=== PATIENT | female | born 1940 | race Caucasian/White ===

== ENCOUNTER 2016-12-12 20:32 | Emergency (ER) | payer MEDICARE, OTHER ==
[~2016-12-12] VITALS: Ht 172.7 cm; Wt 93.6 kg
[~2016-12-12 20:32] MED LIST: ATEN100T PO; CHOL500050 PO; CITA40TA13 PO; HYDR25TA4 PO; LEVO175T5 PO; LOSA100T29 PO; MORP-32 PO; MORP15TA PO; PANT40TA3 PO
[2016-12-12 20:38] VITALS: BP 105/64; PULSE 84; RESP 18; O2SAT 100
--- NOTE | 2016-12-12 20:49 | ED.REPORT ---
HPI-Dyspnea / Wheezing Date of Service Dec 12, 2016 ED Provider: Brigido Chanel DO Patient is a 76 year old with a history of hypertension, anxiety and depression who presents to the ED due to shortness of breath. Associated symptoms include diaphoresis and anxiety. The patient reports that it feels like she is drowning. She denies chest pain, leg swelling, fever or cough. The patient states that she recently went off Cymbalta with her last dose on . She states that she is able to sleep with one pillow. Nursing Notes Stated Complaint: TROUBLE BREATHING,FEEL LIKE IM DROWNING Chief Complaint: Respiratory Complaints Nursing Notes Reviewed: Yes Allergies: Coded Allergies: Penicillins (Verified Allergy, Severe, anaphylaxis, 10/07/09) TAPE (Verified Allergy, Severe, blisters (paper tape ok), 03/01/09) aspirin (Verified Allergy, Intermediate, rash, gi distress; percocet is ok , 10/07/09) oxycodone HCl (Verified Allergy, Intermediate, rash, gi distress; percocet is ok, 10/07/09) Scheduled Atenolol (Atenolol) 100 Mg Tablet 100 MG PO DAILY Cholecalciferol (Vitamin D3) (Vitamin D3) 50,000 Unit Capsule 50,000 UNIT PO QW Citalopram (Citalopram) 40 Mg Tablet 40 MG PO BID Hydrochlorothiazide (Hydrochlorothiazide) 25 Mg Tablet 25 MG PO DAILY Levothyroxine (Levothyroxine) 175 Mcg Tablet 175 MCG PO DAILY Losartan Potassium (Losartan Potassium) 100 Mg Tablet 100 MG PO DAILY Morphine Sulfate ER (Morphine Sulfate ER) 15 Mg Tablet.er 15 MG PO BID Pantoprazole DR (Pantoprazole DR) 40 Mg Tablet.dr 40 MG PO BID Scheduled PRN Morphine Sulfate (Morphine Sulfate) 15 Mg Tablet 0.5-1 TAB PO Q6 PRN PRN For Pain General Time Seen by MD: 20:46 Chief Complaint Shortness of breath Hx Obtained From: Patient Arrived By: Walk-in Sudden in Onset?: Yes Onset Occurred: Yesterday Symptom Duration: Since onset Location: : None Associated with: Reports: Anxiety, Diaphoresis, Denies: Chest pain, Cough Recent Healthcare: No recent hospitalization, Recent doctor visit Past Medical History Past Medical History Chronic back pain hypothyroidism depression anxiety Reports: GERD, Hypertension Past Surgical History Reports: Cholecystectomy, Hysterectomy Reports: Hip replacement Smoking History Former Smoker Social History Alcohol Use: Denies alcohol use Drug Use: Denies drug use Other Social History: Good social support Ambulatory Status Independent Review of Systems Constitutional: Denies: Fever, Weakness - generalized Respiratory: Reports: Shortness of breath, Denies: Non-productive cough Cardiovascular: Denies: Chest pain Musculoskeletal: Denies: Extremity swelling Skin: Reports Diaphoresis Complete sys rev & neg: except as marked. Psychiatric: Reports: Anxiety Physical Exam Initial Vital Signs Vital Signs (First) Date Time Temp Pulse Resp B/P Pulse Ox O2 Delivery O2 Flow Rate FiO2 12/12/16 20:38 36.9 84 18 105/64 100 Room Air Initial VS: Reviewed General/Constitutional: Awake, Alert Behavior: Positive: Anxious, Tearful Neck: Atraumatic, Supple, Full range of motion, No JVD Respiratory / Chest: Atraumatic, Breath sounds NL, Breath sounds = bilat, No respiratory distress Cardiovascular: Heart rate NL, Regular rhythm, Heart sounds NL Lower Extremity / Pelvis / MS: Atraumatic, Full range of motion Skin: Atraumatic, Color NL, No rash, Warm, Dry Neurologic: Oriented X3, Speech NL Head / Eyes: Atraumatic, Normocephalic, PERRL, EOMI Psychiatric: Affect NL, Mood NL Interpretation & Diagnostics Lab Results Interpretation Result Diagram: 12/12/16205412/12/162054 Test 12/12/16 20:55 12/12/16 22:07 12/12/16 23:57 White Blood Count 6.9th/mm3 (3.8-10.1) Red Blood Count 3.83mil/mm3 (3.90-5.20) Hemoglobin 11.9g/dL (12.0-15.6) Hematocrit 34.8% (35.0-46.0) Mean Corpuscular Volume 90.9fL (81-100) Mean Corpuscular Hemoglobin 31.1pg (27.0-35.0) Mean Corpuscular Hemoglobin Concent 34.2% (32.0-37.0) Red Cell Distribution Width 12.3% (12.3-15.4) Platelet Count 259bil/L (150-400) Neutrophils (%) (Auto) 62.0% (40-74) Lymphocytes (%) (Auto) 26.7% (14-46) Monocytes (%) (Auto) 8.8% (4-12) Eosinophils (%) (Auto) 2.0% (0-5) Basophils (%) (Auto) 0.4% (0-3) D-Dimer < 0.50mg/L FEU (<0.50) Sodium Level 136mEq/L (134-144) Potassium Level 4.1mEq/L (3.5-5.2) Chloride Level 96mEq/L (97-108) Carbon Dioxide Level 24mmol/L (18-29) Blood Urea Nitrogen 24mg/dL (8-27) Creatinine 1.11mg/dL (0.57-1.00) Estimat Glomerular Filtration Rate 69mL/min (>59) Glucose Level 142mg/dL (60-99) Calcium Level 10.4mg/dL (8.5-10.1) Magnesium Level 1.8mg/dL (1.6-2.6) Total Bilirubin 0.3mg/dL (0.0-1.2) Aspartate Amino Transf (AST/SGOT) 20U/L (0-50) Alanine Aminotransferase (ALT/SGPT) 13U/L (0-32) Alkaline Phosphatase 50U/L (25-165) Pro-B-Type Natriuretic Peptide 57.38pg/mL (0-738) Total Protein 7.8g/dL (6.4-8.4) Albumin 4.5g/dL (3.4-5.0) Hold Urine Received (Received) Troponin T 0.010ug/L (0.0-0.011) ECG Interpretation ECG Interpretation: Motion artifcat no ST elevation, MD Time: 20:51 Interpreted by: ED physician Normal ECG Interpretation: Normal rate (84), Normal sinus rhythm Time: 22:16 Interpreted by: ED physician Normal ECG Interpretation: Normal rate (73), Normal sinus rhythm X-Ray Chest Interpretation Chest Xray Interpretation: IMPRESSION: No acute cardiopulmonary disease. Dictated by: Vasiliy Conti M.D. on 12/12/2016 at 21:22 Approved by: Vasiliy Conti M.D. on 12/12/2016 at 21:22 View: Portable, 1 view Interpretation / Wet Read by: Interpret - Radiologist Re-Eval/Medical Decision Med Decision/Clinical Course This is a very delightful 76-year-old female who presents with extreme anxiety. She has been tapering off her antidepressants over the last few days she has become so anxious she is pacing about the house. She feels like the world was closing in on her and that is hard for her to take a deep breath home down. She is requesting something for her anxiety. She does not have any suicidal or homicidal ideations. Aside from being anxious her neurological and psychiatric evaluation was normal. Her lungs were clear. Her cardiac exam was normal. She received IV lorazepam with prompt an immediate relief of all symptoms. After this she was calm: Collected. She felt no longer short of breath. She felt fine. I ruled her out for myocardial infarction. Serial EKGs and troponins were negative. Chest x-ray is normal. Heart failure labs were negative. D-dimer was negative. After 4 hours she looked and felt great and was ready to be discharged home. The Ativan worked wonders for her. The comp locating factors that she takes oxycodone. I had a lengthy discussion with her and her family regarding the benzodiazepines and opiate combination. I warned her that the combination can Be life-threatening. She needs help with her anxiety. I think that a short course of benzodiazepines are indicated until her doctor get her back on a long-term anxiolytic. We have agreed to do is that she will take half a milligram of lorazepam at bedtime. She is never going to take this within 6 hours of any opiates. She understands that the combined of the 2 could be life-threatening. She is very pleased with this. She is willing to take the medication risks because her quality of life is suffering significantly due to her anxiety. Her is happy with this as is her daughter. Her questions were answered and she was discharged in stable condition Source of Hx: Old records Re-Evaluation/Progress : Time of Eval: 00:41 Re-Evaluation/Progress Note: Discussed results and plan for discharge. The patient understands and agrees to the plan. All questions were addressed. Counseled Regarding: Diagnosis, Lab results, Need for follow-up, When/why to return to ED Discharge & Departure Impression: Primary Impression: Dyspnea Dyspnea type: shortness of breath Qualified Code: R06.02 - Shortness of breath Additional Impression: Anxiety Disposition: Home Discharge Condition All VS Reviewed: Yes Condition: Stable Additional Instructions: Your EKG, heart blood tests, blood clot blood test, heart failure test and chest x-ray were all normal. You are suffering with anxiety. This may well be related to withdrawal from her antidepressants. The lorazepam given seemed to have helped. I recommend that you take one half of the tablets that we sent with you at bedtime for anxiety symptoms. Do not combine this with the oxycodone. Do not take the lorazepam within 6 hours of taking oxycodone. The combination can be life-threatening. Do not drive tonight. Do not drive or consume alcohol or take any other sedatives while taking the lorazepam. I would like you to call your primary care physician tomorrow morning for a follow-up to discuss other antidepressants and antianxiety treatments that are available for you. Return if any problems or any new or worsening symptoms. Referrals: Roseline Pimentel (PCP) Miryam Attestation Portions of this note were transcribed by Nani Lopez. I, Dr. Chanel personally performed the history, physical exam and medical decision-making; I reviewed and confirmed the accuracy of the information in the transcribed note. Signed by: Miryam Garay, 12/13/16 and 0004 copies to: Roseline Pimentel Todd P DO Dec 12, 2016 20:49 Alina Lopez Dec 12, 2016 21:45
[2016-12-12 21:07] LABS: BASOPHILS % (AUTO) 0.4 % (0-3); MONOCYTES % (AUTO) 8.8 % (4-12); Mean Corpuscular Hemoglobin 31.1 pg (27.0-35.0); Mean Corpuscular Volume 90.9 fL (81-100); Platelet Count 259 bil/L (150-400)
--- NOTE | 2016-12-12 21:23 | DRSVH ---
PROCEDURE: X-RAY CHEST ONE VIEW, PORTABLE ([id number]) INDICATIONS: respiratory distress TECHNIQUE: One view of the chest was acquired. COMPARISON: [facility], , CHEST 1VW (PORTABLE), 04/12/2008, 11:18. FINDINGS: Surgical changes and devices: None. Lungs and pleura: No pleural effusions or pneumothorax. Lungs are clear. Mediastinum: Mediastinal contours appear normal. Heart size is normal. Bones and chest wall: No suspicious bony lesions. Overlying soft tissues appear unremarkable. IMPRESSION: No acute cardiopulmonary disease. Dictated by: Vasiliy Conti M.D. on 12/12/2016 at 21:22 Approved by: Vasiliy Conti M.D. on 12/12/2016 at 21:22
[2016-12-12 21:27] LABS: TROPONIN T 0.01 ug/L (0.0-0.011)
[2016-12-12 21:38] LABS: Magnesium 1.8 mg/dL (1.6-2.6)
[2016-12-12 22:35] VITALS: BP 125/47; PULSE 69; RESP 15; O2SAT 98
[2016-12-12] MEDS ORDERED: _LORazepam 1 mg Tablet PO PRN (23:35)
[2016-12-13 00:24] VITALS: BP 134/61; PULSE 74; RESP 14; O2SAT 100
[2016-12-13 00:49] VITALS: BP 134/61; PULSE 74; RESP 14; O2SAT 100
== END 2016-12-13 00:49 | disposition home or self-care (01) ==
LOC: SED 20:32
DX: R06.02 Shortness of breath (principal); F41.9 Anxiety disorder, unspecified; I10 Essential (primary) hypertension; K21.9 Gastro-esophageal reflux disease without esophagitis; E03.9 Hypothyroidism, unspecified; Z79.899 Other long term (current) drug therapy; Z79.891 Long term (current) use of opiate analgesic; Z88.0 Allergy status to penicillin; Z88.5 Allergy status to narcotic agent; Z88.8 Allergy status to other drugs, medicaments and biological substances; Z90.710 Acquired absence of both cervix and uterus
CPT/HCPCS: 36415; 71010; 80053; 83735; 83880; 84484; 85025; 85378; 93005; 96374; 99285; J2060